=== PATIENT | female | born 1955 | race Two or more races ===

== ENCOUNTER 2018-05-21 08:36 | Outpatient (CLI) | payer OTHER | END 2018-05-21 08:44 | disposition home or self-care (01) | LOC: RAD 08:36 | DX: M54.2 Cervicalgia (principal); M54.5 Low back pain; M54.6 Pain in thoracic spine; I70.0 Atherosclerosis of aorta ==

== ENCOUNTER 2020-02-22 08:52 | Outpatient (CLI) | payer OTHER | END 2020-02-22 09:00 | disposition home or self-care (01) | LOC: NUCLEAR 08:52 | DX: C50.812 Malignant neoplasm of overlapping sites of left female breast (principal) | CPT/HCPCS: 78815; A9552 ==